=== PATIENT | female | born 1995 | race African-American/Black ===

== ENCOUNTER → 2016-12-30 | Outpatient (REF) | payer OTHER | END | disposition home or self-care (01) | LOC: EEVIPCON 13:59 → M SFHCLERA 13:59 | PROVIDERS: ATTEND Physician Assistant | DX: N30.01 Acute cystitis with hematuria (principal) ==

== ENCOUNTER → 2017-01-17 | Outpatient (REF) | payer OTHER ==
[2017-01-17 18:31] LABS: HCG, SERUM QUANTITATIVE 91501 MIU/ML
[2017-01-17 18:36] LABS: MEAN CORPUSCULAR HEMOGLOBIN 18.7 pg (27.0-33.0); MEAN CORPUSCULAR HGB CONC 27.8 g/dl (32.0-36.5); MEAN CORPUSCULAR VOLUME 67.1 fl (80.0-96.0); PLATELET COUNT, AUTOMATED 406 k/mm3 (150-450); RED CELL DISTRIBUTION WIDTH 16.4 % (11.5-14.5); WHITE BLOOD COUNT 5.3 K/mm3 (4.0-10.0)
[2017-01-17 19:28] LABS: SICKLE CELL SCREEN NEGATIVE (NEGATIVE)
[2017-01-18 11:31] LABS: HBsAg Prenatal NEGATIVE (NEGATIVE)
[2017-01-18 11:43] LABS: CONTROL LINE INT CTR LINE PRESENT; HIV SCRN NEGATIVE (NEGATIVE); HIV SCRN1 NEGATIVE (NEGATIVE)
== END | disposition home or self-care (01) ==
LOC: M LAB REF 16:54
PROVIDERS: ATTEND Advanced Practice Midwife
DX: O36.80X0 Pregnancy with inconclusive fetal viability, not applicable or unspecified (principal); Z36 Encounter for antenatal screening of mother; Z3A.00 Weeks of gestation of pregnancy not specified

== ENCOUNTER → 2017-01-22 | Outpatient (REF) | payer OTHER ==
[2017-01-22 13:32] LABS: FERRITIN 12 NG/ML (8-252)
== END ==
LOC: M LAB REF 12:19
PROVIDERS: ATTEND Advanced Practice Midwife
DX: O99.011 Anemia complicating pregnancy, first trimester (principal); Z36 Encounter for antenatal screening of mother; Z3A.00 Weeks of gestation of pregnancy not specified

== ENCOUNTER → 2017-02-13 | Outpatient (REF) | payer OTHER | LOC: M LAB REF 16:34 | PROVIDERS: ATTEND Advanced Practice Midwife | DX: Z34.81 Encounter for supervision of other normal pregnancy, first trimester (principal); Z36 Encounter for antenatal screening of mother; Z3A.00 Weeks of gestation of pregnancy not specified ==

== ENCOUNTER → 2017-05-25 | Outpatient (CLI) | payer OTHER | LOC: M LAB 14:36 | PROVIDERS: ATTEND Advanced Practice Midwife | DX: Z34.82 Encounter for supervision of other normal pregnancy, second trimester (principal) ==

== ENCOUNTER → 2017-05-27 | Outpatient (CLI) | payer OTHER ==
[2017-05-27 15:26] LABS: MEAN CORPUSCULAR HGB CONC 35.5 g/dl (32.0-36.5); MEAN CORPUSCULAR VOLUME 84.3 fl (80.0-96.0); RED CELL DISTRIBUTION WIDTH 16.9 % (11.5-14.5); WHITE BLOOD COUNT 8.2 K/mm3 (4.0-10.0)
== END ==
LOC: M LAB 13:49
PROVIDERS: ATTEND Advanced Practice Midwife
DX: Z34.82 Encounter for supervision of other normal pregnancy, second trimester (principal)

== ENCOUNTER 2017-06-15 01:37 | Emergency (ER) | payer OTHER ==
[~2017-06-15] VITALS: Ht 170.2 cm; Wt 77.0 kg
[2017-06-15 01:42] VITALS: BP 118/63
[2017-06-15] MEDS ORDERED: IRON18TA PO (01:50)
[2017-06-15] MEDS ORDERED: PRE-TAB3 PO (01:50)
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
[2017-06-15] MEDS ORDERED: ACETAMINOPHEN 325 MG TAB PO ONE (06:30)
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
[2017-06-15] MEDS ORDERED: FERR325T3 PO (14:36)
== END 2017-06-15 06:59 | disposition home or self-care (01) ==
LOC: MERGE 01:37 → M ED 01:37
DX: O9A.313 Physical abuse complicating pregnancy, third trimester (principal); S00.93XA Contusion of unspecified part of head, initial encounter; S60.221A Contusion of right hand, initial encounter; Z3A.29 29 weeks gestation of pregnancy; Y04.0XXA Assault by unarmed brawl or fight, initial encounter; Y92.099 Unspecified place in other non-institutional residence as the place of occurrence of the external cause; Y93.89 Activity, other specified; Y99.9 Unspecified external cause status

== ENCOUNTER 2017-06-15 07:17 | Outpatient (CLI) | payer OTHER ==
[~2017-06-15] VITALS: Ht 170.2 cm; Wt 77.0 kg
[~2017-06-15 07:17] MED LIST: IRON18TA PO; PRE-TAB3 PO
[2017-06-15 08:36] VITALS: BP 107/60
[2017-06-15 09:57] VITALS: BP 96/54
[2017-06-15 11:11] VITALS: BP 114/53
[2017-06-15] MEDS ORDERED: FERR325T3 PO (14:36)
== END 2017-06-15 14:02 | disposition home or self-care (01) ==
LOC: MERGE 07:17 → M LDO 07:17
PROVIDERS: ATTEND Obstetrics & Gynecology
DX: O9A.313 Physical abuse complicating pregnancy, third trimester (principal); Z3A.29 29 weeks gestation of pregnancy; S60.221A Contusion of right hand, initial encounter; S00.03XA Contusion of scalp, initial encounter; X58.XXXA Exposure to other specified factors, initial encounter; Y92.9 Unspecified place or not applicable; Y99.8 Other external cause status

== ENCOUNTER → 2017-07-31 | Outpatient (REF) | payer OTHER ==
[~2017-07-31] MED LIST changes: +ACET50TA PO; +FERR325T3 PO; +IBUP-1114 PO; +MACR100C43 PO; +PRENTAB9 PO; +TUMS500C PO
== END ==
LOC: MERGE 17:07 → M LAB REF 17:07
PROVIDERS: ATTEND Advanced Practice Midwife
DX: Z34.83 Encounter for supervision of other normal pregnancy, third trimester (principal); Z3A.35 35 weeks gestation of pregnancy; Z36 Encounter for antenatal screening of mother

== ENCOUNTER 2017-08-09 18:14 | Outpatient (CLI) | payer OTHER ==
[~2017-08-09] VITALS: Ht 170.2 cm; Wt 82.0 kg
[~2017-08-09 18:14] MED LIST changes: -ACET50TA PO; -IBUP-1114 PO; -MACR100C43 PO; -PRENTAB9 PO; -TUMS500C PO
[2017-08-09 18:37] VITALS: BP 125/65
[2017-08-09] MEDS ORDERED: PRENTAB9 PO (19:21)
[2017-08-09] MEDS ORDERED: TUMS500C PO (19:21)
[2017-08-09] MEDS ORDERED: FERR325T3 PO (19:21)
[2017-08-09] MEDS ORDERED: MACR100C43 PO (19:44)
[2017-08-09] MEDS ORDERED: NITROFURANTOIN (MACROBID) 100 MG CAP PO ONE (19:45)
== END 2017-08-09 19:50 | disposition home or self-care (01) ==
LOC: MERGE 18:14 → M LDO 18:14
PROVIDERS: ATTEND Advanced Practice Midwife
DX: O23.40 Unspecified infection of urinary tract in pregnancy, unspecified trimester (principal); Z3A.37 37 weeks gestation of pregnancy

== ENCOUNTER 2017-08-17 13:45 | Inpatient (IN) | payer OTHER ==
[~2017-08-17] VITALS: Ht 170.2 cm; Wt 88.1 kg
[~2017-08-17 13:45] MED LIST changes: +MACR100C43 PO; +PRENTAB9 PO; +TUMS500C PO
[2017-08-17 14:14] VITALS: BP 132/66
[2017-08-17 15:46] LABS: MEAN CORPUSCULAR HEMOGLOBIN 31.2 pg (27.0-33.0); MEAN CORPUSCULAR HGB CONC 35.9 g/dl (32.0-36.5); MEAN CORPUSCULAR VOLUME 86.8 fl (80.0-96.0); RED CELL DISTRIBUTION WIDTH 13.5 % (11.5-14.5); WHITE BLOOD COUNT 7.6 K/mm3 (4.0-10.0)
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
[2017-08-17 16:18] VITALS: BP 152/81
[2017-08-17] MEDS ORDERED: OXYTOCIN 30 UNITS IN 0.9% NaCl 500ML IV BAG (J2590) As Ordered ONE (16:31)
[2017-08-17] MEDS ORDERED: DOCUSATE SODIUM 100 MG CAP PO PRN (17:30)
[2017-08-17] MEDS ORDERED: ANUSOL HC CREAM 30GM TOP PRN (17:30)
[2017-08-17] MEDS ORDERED: METHYLERGONOVINE MALEATE 0.2 MG TAB PO PRN (17:30)
[2017-08-17] MEDS ORDERED: RHOGAM 300 MCG (1500 IU) INJ (J2790) IM SCH (17:30)
[2017-08-17] MEDS ORDERED: DIBUCAINE 1% OINTMENT 30GM TOP PRN (17:30)
[2017-08-17] MEDS ORDERED: MEASLES,MUMPS,RUBELLA VACCINE INJ (MMR-II) (90707) SC SCH (17:30)
--- NOTE | 2017-08-17 18:56 | DNPDOC ---
[facility] Delivery Note Delivery Note DATE OF DELIVERY: 08/17/17 at 1658. PROCEDURE: Spontaneous vaginal delivery. Provider: Bert Lopez CNM, MONE ANESTHESIA: none. ESTIMATED BLOOD LOSS: 150 mL. FINDINGS: 8 pounds 3 ounces, 3700 grams; female infant, Score 8/9. DELIVERY SUMMARY: Patient is a 22 year-old female who is now a at 38.2 weeks gestation who presented to L&D in active labor. She progressed to fully dilated at 1650 after she was artificially ruptured at 1624 to a small amount of clear fluid. She pushed to a live female at 1658 in the AZIZA position with restitution to ROT. The anterior shoulder delivered with ease and the corpus immediately followed. The baby was placed on the maternal abdomen active and crying with stimulation. The cord was clamped x 2 after pulsation of the cord ceased. The cord was cut by FOB. A 3 vessel cord was noted. The placenta delivered spontaneously at 1704 with trailing membranes that were removed with ring forceps. Uterine hemostasis was achieved with fundal massage and rapid infusion of IV Pitocin. The perineum and vagina were inspected and found to be intact with bilateral labial abrasions. Mom is without difficulty. 's name is "Marylu." Mom and baby are in stable condition. BERT LOPEZ CNM Aug 17, 2017 18:56
[2017-08-17 19:30] VITALS: BP 133/62
[2017-08-18] MEDS: ACETAMINOPHEN 500 MG TAB PO PRN ×3 (03:30→19:46)
[2017-08-18 06:31] VITALS: BP 119/64
[2017-08-18] MEDS: PRENATAL VITAMINS CHEWABLE TABLET PO SCH (08:41)
[2017-08-18] MEDS ORDERED: medroxyPROGESTERone ACET IM SUSP 150 MG/ML VIAL (J1050) IM ONE (13:00)
[2017-08-18 17:57] VITALS: BP 140/60
[2017-08-18] MEDS: IBUPROFEN 800 MG TAB PO PRN (21:43)
[2017-08-19 05:42] VITALS: BP 125/88
[2017-08-19] MEDS: PRENATAL VITAMINS CHEWABLE TABLET PO SCH (07:25)
[2017-08-19] MEDS: IBUPROFEN 800 MG TAB PO PRN (13:22)
[2017-08-19] MEDS ORDERED: medroxyPROGESTERone ACET IM SUSP 150 MG/ML VIAL (J1050) IM ONE (13:30)
[2017-08-19] MEDS ORDERED: ACET50TA PO (17:26)
[2017-08-19] MEDS ORDERED: IBUP-1114 PO (17:26)
== END 2017-08-19 18:35 | disposition home or self-care (01) | DRG 775 ==
LOC: M LDO 13:45 → M LDI 14:19 → MERGE 14:19 → M OBS 19:20
PROVIDERS: ADMIT Advanced Practice Midwife; ATTEND Advanced Practice Midwife
PROC: 10E0XZZ Delivery of Products of Conception, External Approach (ICD-10-PCS; principal; 2017-08-17)
DX: O99.02 Anemia complicating childbirth (principal); Z37.0 Single live birth; Z3A.38 38 weeks gestation of pregnancy; D50.9 Iron deficiency anemia, unspecified; Z91.410 Personal history of adult physical and sexual abuse